=== PATIENT | male | born 2000 | race Two or more races ===

== ENCOUNTER 2021-04-12 09:46 | Emergency (ER) | payer BC ==
[2021-04-12] MEDS ORDERED: MAG HYDROX/AL HYDROX/SIMETH 30 ML UNIT-DOSE CUP PO ONE (10:18)
[2021-04-12] MEDS ORDERED: FAMOTIDINE 20 MG/50 ML IVPB 20 MG/50 ML MG IVPB ONE ×2 (10:18→10:25)
[2021-04-12] MEDS ORDERED: SODIUM CHLORIDE 1,000 ML IV STA (10:18)
[2021-04-12] MEDS ORDERED: ONDANSETRON 4 MG/2 ML VIAL IVPUSH ONE (10:18)
[2021-04-12 10:21] VITALS: BP 115/66; PULSE 81; TEMP 98.2; BMI 20.3
[2021-04-12] MEDS ORDERED: ONDANSETRON 4 MG/2 ML VIAL ONE (10:25)
[2021-04-12] MEDS ORDERED: MAG HYDROX/AL HYDROX/SIMETH 30 ML UNIT-DOSE CUP ONE (10:25)
[2021-04-12 10:40] LABS: BASO % 0.2 % (0-2.0); EOS % 0.2 % (0-4.5); HEMATOCRIT 44.8 % (35.4-49); HEMOGLOBIN 15.8 GM/dL (11.7-16.9); LYMPH % 12.8 % (8-40); MCH 31.4 pg (25.7-33.7); MCHC 35.4 g/dl (32.0-35.9); MEAN CELL VOLUME 88.8 fl (80-96); MEAN PLT VOLUME 9.3 fl (7.5-11.1); MONO % 3.4 % (3.8-10.2); NEUT % 83.4 % (42.8-82.8); PLATELET COUNT 204 10^3/uL (134-434); RBC 5.04 M/mm3 (4.00-5.60); WHITE BLOOD COUNT 11.3 K/mm3 (4.0-10.0)
[2021-04-12 10:52] LABS: CHLORIDE 104 mmol/L (98-107); SODIUM 139 mmol/L (136-145)
[2021-04-12 10:54] LABS: ALBUMIN 4.2 g/dl (3.4-5.0); ANION GAP 5 MMOL/L (8-16); CALCIUM 9.1 mg/dL (8.5-10.1); CO2 29 mmol/L (21-32)
[2021-04-12 10:55] LABS: BLOOD UREA NITROGEN 10.8 mg/dL (7-18); GLUCOSE,RANDOM 90 mg/dL (74-106)
[2021-04-12 10:57] LABS: SGPT/ALT 28 U/L (13-61)
[2021-04-12 10:58] LABS: CREATININE 1.1 mg/dL (0.55-1.3); SGOT/AST 16 U/L (15-37)
[2021-04-12 10:59] LABS: BILIRUBIN,TOTAL 0.5 mg/dL (0.2-1); TOT PROT 7.8 g/dl (6.4-8.2)
[2021-04-12 11:00] LABS: ALK PHOS 112 U/L (45-117)
[2021-04-12 11:06] LABS: INR 1.02 (0.83-1.09); PROTHROMBIN TIME (PATIENT) 12.5 SEC (9.7-13.0)
== END 2021-04-12 13:13 | disposition home or self-care (01) ==
LOC: JER 09:46
PROC: 3E033NZ Introduction of Analgesics, Hypnotics, Sedatives into Peripheral Vein, Percutaneous Approach (ICD-10-PCS; principal; 2021-04-12)
PROC: 3E033GC Introduction of Other Therapeutic Substance into Peripheral Vein, Percutaneous Approach (ICD-10-PCS; 2021-04-12)
PROC: 3E0337Z Introduction of Electrolytic and Water Balance Substance into Peripheral Vein, Percutaneous Approach (ICD-10-PCS; 2021-04-12)
DX: K21.9 Gastro-esophageal reflux disease without esophagitis (principal)
CPT/HCPCS: 36415; 71046-TC-FY; 80053; 82550; 84484; 85025; 85610; 93005; 93010; 99284-25